=== PATIENT | male | born 1970 | race Caucasian/White ===

== ENCOUNTER 2017-12-02 11:15 | Emergency (ER) | payer OTHER, SELFPAY ==
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
[2017-12-02 11:33] VITALS: BP 160/100; PULSE 83; RESP 18; TEMP 36.7; O2SAT 97
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
--- NOTE | 2017-12-02 12:11 | PC.NURSE ---
PT TRANSFERRED TO PER PROTOCOL; REPORT CALLED PER SHELIA RODRIGUESRN
[2017-12-02 12:12] VITALS: BP 165/95; PULSE 76; RESP 18; TEMP 36.6; O2SAT 98
[2017-12-02 12:20] LABS: POC Glucose,Bedside 128 mg/dL (70-110)
[2017-12-09 09:35] LABS: POC Glucose,Bedside 137 mg/dL (70-110)
== END 2017-12-02 12:16 | disposition short-term general hospital (02) ==
LOC: ER 12:04
PROVIDERS: Emergency Provider Emergency Medicine
DX: M54.5 Low back pain (principal); V59.88XA Occupant (driver) (passenger) of pick-up truck or van injured in other specified transport accidents, initial encounter; Y92.488 Other paved roadways as the place of occurrence of the external cause; Y99.0 Civilian activity done for income or pay; R11.10 Vomiting, unspecified; S39.82XA Other specified injuries of lower back, initial encounter
CPT/HCPCS: 71045; 72170; 82962; 96365; 96374; 96375; 99282; 99291; J2405